=== PATIENT | female | born 2005 | race Caucasian/White ===

== ENCOUNTER 2025-05-27 13:32 | Emergency (ER) | payer BC, SELFPAY ==
--- NOTE | 2025-05-27 13:33 | ED_ITS ---
HPI - General Adult General Chief complaint: Nausea/Vomiting/Diarrhea Stated complaint: NAUSEA/VOMITING/STOMACH PAIN Time Seen by Provider: 05/27/25 14:25 Source: patient Mode of arrival: ambulatory Limitations: no limitations History of Present Illness HPI narrative: 20-year-old female that presents with Nausea, vomiting and feeling hot. Patient has been able to keep down fluids and medication but has not eaten anything today. Patient has similar symptoms previously and states this is just worse than it normally is. Patient states that she had an last year and symptoms have worsened since then. does have history of ovarian cysts but denies any vaginal bleeding. Related Data Allergies Allergy/AdvReac Type Severity Reaction Status Date / Time No Known Allergies Allergy Verified 05/27/25 13:56 Review of Systems Review of Systems: All systems reviewed & are unremarkable except as noted in HPI and below Constitutional: Constitutional: Denies body ache(s), Denies chills, Denies fatigue, Denies fever(s), Denies headache(s), Denies malaise and Denies weakness Eyes: Eyes: Denies blurry vision, Denies irritation and Denies loss of vision ENT: Denies otalgia, Denies headache(s), Denies nasal discharge, Denies sinus pain and Denies sore throat Cardiovascular: Cardiovascular: Denies chest pain, Denies irregular heart rhythm and Denies dyspnea Respiratory: Respiratory: Denies dyspnea Gastrointestinal: Gastrointestinal: Reports abdominal pain, Denies melena, Denies hematochezia, Denies diarrhea, Reports nausea and Reports vomiting Musculoskeletal: Musculoskeletal: Denies back pain, Denies myalgias and Denies arthralgias Integumentary/Breasts: Skin/Breast: Denies pruritus and Denies rash Neurologic: Denies headache(s), Denies loss of vision and Denies weakness Psychiatric: Psychiatric: Reports no additional psychiatric complaints Endocrine: Endocrine: Denies fatigue PMFSH Comments At time of signature, agree with nursing past medical, surgical, social and family history. There is no relevant family history pertinent to the presenting complaint. Exam Const: General: cooperative, healthy appearing, comfortable, no acute distress and well nourished Nutritional Appearance: well nourished Orientation/consciousness: patient oriented x3 Limitations: no limitations HENMT: Head: normal to inspection, normocephalic and atraumatic Ears: hearing grossly normal bilaterally and external ears normal Face/Nose/Sinus: Normal external nose present, normal facial exam and face symmetric Face and sinus: normal facial exam and face symmetric Mouth: Yes lip normal Eyes: General: appearance normal, both eyes and all related structures Alignment and Position: alignment normal and position normal Periorbital: periorbital findings normal Eyelids: eyelids normal Pupils: Equal, round and reactive pupils present EOM: EOMs intact bilaterally Neck: Neck: normal visual inspection, full ROM and supple Chest: Chest palpation & inspection: normal inspection of the chest Resp: Effort & Inspection: normal respiratory effort and able to speak in complete sentences Auscultation: clear to auscultation bilaterally Cardio: Rate: regular rate Rhythm: regular rhythm Heart sounds: S1 normal heart sound present and S2 normal heart sound present GI: Inspection: normal to inspection GI Palp: No abdominal tenderness, Yes Soft to palpation, No Tenderness to palpation present (GI) and No Guarding due to palpation present (GI) Skin: General skin exam: normal color and no rashes or lesions noted Neuro: General: patient oriented x3 and moves all extremities Cranial nerves: Yes Equal, round and reactive pupils present Speech: normal speech Gait exam (Neuro): Normal gait present Extrem: General: normal to inspection, full ROM and no edema Psych: Appearance: grossly normal and well kempt Mental Status: mental st atus grossly normal Speech and movement: Normal speech and movement present Affect: normal affect Attitude: cooperative Thought process: Normal thought process present Course Course Emergency Course: Patient is aware of diagnosis, understands and agrees to treatment plan. Anticipatory guidance given. Patient agrees to follow-up as directed and is aware of reasons to seek care at the emergency department. Portions of this record may have been created with voice recognition software Level of Care: Express Care Visit Vital Signs Vital signs: Vital Signs Temperature 36.3 C L 05/27/25 13:44 Pulse Rate 45 L 05/27/25 13:44 Respiratory Rate 18 05/27/25 13:44 Blood Pressure 119/69 05/27/25 13:44 Pulse Oximetry 99 05/27/25 13:44 Temperature 36.3 C L 05/27/25 13:44 Pulse Rate 54 L 05/27/25 14:28 Respiratory Rate 18 05/27/25 13:44 Blood Pressure 119/69 05/27/25 13:44 Pulse Oximetry 99 05/27/25 14:28 Oxygen Delivery Room Air 05/27/25 14:28 Reviewed Medical Decision Making MDM Narrative Medical decision making narrative: discussed transfer to emergency department for imaging and labs as it has been several years since she has had a PCP appointment. Patient declines at this time stating she will start with medication and see if helps. Patient susceptible to establishing care with PCP in a week. Pt well hydrated appearing, in no respiratory distress, hemodynamically stable. Recommend supportive care. The patient is stable at time of discharge the clinical impression was discussed and the patient was given the opportunity to ask questions, which were addressed as completely as possible given the information available at present. Anticipatory guidance and return to care pr ecautions were discussed and the importance of primary care follow-up was stressed and encouraged. The patient voiced understanding of the plan, indications to return, and the need for follow-up. Exam findings show no acute concerns or changes Patient is appropriate for outpatient treatment and follow-up. Vital Signs Vital Signs: Vital Signs Temperature 36.3 C L 05/27/25 13:44 Pulse Rate 45 L 05/27/25 13:44 Respiratory Rate 18 05/27/25 13:44 Blood Pressure 119/69 05/27/25 13:44 Pulse Oximetry 99 05/27/25 13:44 Temperature 36.3 C L 05/27/25 13:44 Pulse Rate 54 L 05/27/25 14:28 Respiratory Rate 18 05/27/25 13:44 Blood Pressure 119/69 05/27/25 13:44 Pulse Oximetry 99 05/27/25 14:28 Oxygen Delivery Room Air 05/27/25 14:28 Reviewed Discharge Plan Discharge Clinical Impression: Nausea and vomiting Qualifiers: Vomiting type: unspecified Qualified Code(s): R11.2 - Nausea with vomiting, unspecified Abdominal pain Qualifiers: Abdominal location: generalized Qualified Code(s): R10.84 - Generalized abdominal pain Patient Disposition: Home Condition: Stable Instructions: Acute Nausea and Vomiting (ED), Abdominal Pain (ED) Additional Instructions: Stay hydrated. Take small sips of fluid containing electrolytes frequently(Body [place], Gatorade, Powerade, liquid IV). Eat small meals that her very bland including bananas, applesauce, rice, toast, boiled or grilled chicken, soup. Do not eat anything fried, spicy or overly acidic. You should go to the hospital if you experience return of persistent nausea and vomiting that does not resolve and does not allow you to tolerate any food or fluids, persistent fevers for greater than 2-3 more days, increasing abdominal pain that persists despite medications, persistent diarrhea, dizziness, syncope (fainting), or for any other concerns. Patient Language: [place] Island[place] Prescriptions: New dicyclomine 20 mg tablet 20 mg PO QID 7 Days Qty: 28 0RF ondansetron 4 mg tablet,disintegrating 4 mg PO Q6-8H PRN (Reason: nausea and vomiting) Qty: 7 0RF Follow-up/Referrals: Wayne Alston MD [Physician, DELIVERY AND MAIL SORTER] - 3 Days Referral Note: establish MUNA spears Gina M., DO [Physician, Family Practice] - 3 Days Referral Note: Establish care Stand Alone Forms: Work/School Release IP Time of Disposition: 14:33
[2025-05-27 13:44] VITALS: BP 119/69; PULSE 45; RESP 18; TEMP 36.3; O2SAT 99
[2025-05-27 14:28] VITALS: PULSE 54; O2SAT 99
== END 2025-05-27 14:39 | disposition home or self-care (01) ==
PROVIDERS: Emergency Provider Nurse Practitioner Family
DX: R11.2 Nausea with vomiting, unspecified (principal); R10.84 Generalized abdominal pain
CPT/HCPCS: 99203; G0463

== ENCOUNTER 2025-07-04 14:47 | Emergency (ER) | payer BC, SELFPAY ==
[2025-07-04 15:29] VITALS: BP 113/57; PULSE 55; RESP 16; TEMP 36.4; O2SAT 100
--- NOTE | 2025-07-04 17:56 | ED.FEMALEGU ---
HPI - Female Genitourinary General Chief complaint: Urogenital-Female Stated complaint: Nausea Time Seen by Provider: 07/04/25 16:43 Source: patient and RN notes reviewed Mode of arrival: ambulatory Limitations: no limitations History of Present Illness HPI Narrative: 20-year-old female patient presents today requesting a test and work note. Reports she has had several episodes of vomiting in the morning the last few days and persistent nausea. LMP is May 17. Denies abdominal pain, vaginal bleeding or discharge. States she has not taken a home test. Does not currently have an OBGYN. Related Data Allergies Allergy/AdvReac Type Severity Reaction Status Date / Time No Known Allergies Allergy Verified 05/27/25 13:56 PMFSH Comments At time of signature, I have reviewed and agree with nursing past medical, surgical, social and family history unless otherwise noted. Please see nursing chart for further information. There is no relevant family history pertinent to the presenting complaint Exam Narrative: GENERAL: Well-appearing, well-nourished, and in no acute distress. HEAD: Normocephalic, atraumatic. EYES: EOMI. No redness or drainage. Conjunctivae normal. ENT: Mucous membranes pink and moist. NECK: Normal AROM. CHEST: No respiratory distress. EXTREMITIES: Normal range of motion. No edema. SKIN: Warm, dry, no rash. Capillary refill normal. Normal skin turgor. NEURO: No focal deficits. Alert and oriented x3. Gait steady. PSYCH: Normal affect. No signs of depression or anxiety. Course Course Level of Care: Express Care Visit Vital Signs Vital signs: Vital Signs Temperature 97.5 F L 07/04/25 15:29 Pulse Rate 55 L 07/04/25 15:29 Respiratory Rate 16 07/04/25 15:29 Blood Pressure 113/57 L 07/04/25 15:29 Pulse Oximetry 100 07/04/25 15:29 Temperature 97.5 F L 07/04/25 15:29 Pulse Rate 55 L 07/04/25 15:29 Respiratory Rate 16 07/04/25 15:29 Blood Pressure 113/57 L 07/04/25 15:29 Pulse Oximetry 100 07/04/25 15:29 Reviewed MDM - Female Genitourinary MDM Narrative Medical decision making narrative: 20-year-old female patient presents today requesting a test and work note. Reports she has had several episodes of vomiting in the morning the last few days and persistent nausea. LMP is May 17. Denies abdominal pain, vaginal bleeding or discharge. States she has not taken a home test. Does not currently have an OBGYN. Normal physical exam. Positive bedside test. Recommend patient initiate care with an OBGYN. She has been given contact information for OBGYN in the area. ED precautions given. Differential Diagnosis Differential diagnosis: Likely other () Lab Data Attestation: I reviewed the patient's lab results. Lab results narrative: Positive bedside test Critical Care Time Critical Care Time Critical Care Time: No Discharge Plan Discharge Clinical Impression: Positive urine test Patient Disposition: Home Condition: Stable Additional Instructions: You have a positive test today. Please make an appointment to initiate care with an OBGYN. Please discontinue use of any Aleve or ibuprofen. If you develop any abdominal pain, bleeding or discharge, please go to the ER immediately for further evaluation. Patient Language: Norwegian Prescriptions: No Action dicyclomine 20 mg tablet 20 mg PO QID 7 Days Qty: 28 0RF ondansetron 4 mg tablet,disintegrating 4 mg PO Q6-8H PRN (Reason: nausea and vomiting) Qty: 7 0RF Follow-up/Referrals: PHYSICIAN,[employer] [Primary Care Provider, Internal Medicine] Stand Alone Forms: Work/School Release IP Time of Disposition: 16:48
[2025-07-05 11:51] LABS: BEDSIDEPREGUCG Positive (Negative)
== END 2025-07-04 16:50 | disposition home or self-care (01) ==
PROVIDERS: Emergency Provider Nurse Practitioner
DX: Z32.01 Encounter for pregnancy test, result positive (principal)
CPT/HCPCS: 81025; 99212; G0463

== ENCOUNTER 2025-07-06 11:56 | Emergency (ER) | payer BC, SELFPAY ==
--- NOTE | ~2025-07-06 | US_ITS ---
EXAMINATION: US OB <=14 wk fetus w TV DATE: 07/06/2025 15:17 INDICATION: Vomiting during first trimester TECHNIQUE: Real-time pelvic ultrasound utilizing both a transvaginal and transabdominal probe was performed. The interpreting radiologist was not present for the study. COMPARISON: None. FINDINGS: The uterus measures 9.6 x 4.8 x 6.7 cm. There is an intrauterine gestational sac. A yolk sac and pole are identified. The crown rump length measures 7 mm, which correlates with an estimated gestational age of 6 weeks and 4 days. heart motion is identified measuring 126 beats per minute (bpm) by M-mode Doppler. 5 mm anechoic nabothian cysts the cervix. The right ovary measures 3.3 x 2.6 x 1.8 cm. The left ovary measures 3.2 x 1.6 x 2.0 cm. There is partial flow identified in both ovaries on color Doppler. free fluid in the pelvis. IMPRESSION: 1. Single living fetus with heart rate of 126 bpm. 2. Gestational age by ultrasound of 6 weeks 4 day(s) +/- 4 day(s) with ultrasound estimated date of delivery ([facility]) of 02/25/2026. Reviewed, dictated and finalized at location A. HER AIDE IMPRESSION: 1. Single living fetus with heart rate of 126 bpm. 2. Gestational age by ultrasound of 6 weeks 4 day(s) +/- 4 day(s) with ultraso und estimated date of delivery ([facility]) of 02/25/2026.
[2025-07-06 12:07] VITALS: BP 116/65; PULSE 67; RESP 20; TEMP 36.4; O2SAT 100
[2025-07-06 12:25] VITALS: BP 122/70; PULSE 70; RESP 18; O2SAT 98
[2025-07-06] MEDS: FAMOTIDINE 20 MG/2 ML VIAL IV PUSH (12:45)
[2025-07-06] MEDS: ONDANSETRON INJ 4 MG/2 ML VIAL IV PUSH (12:46)
[2025-07-06] MEDS: LACTATED RINGERS 1,000 ML 999 ML IV CONT (12:46)
[2025-07-06 13:18] LABS: Hematocrit 42.9 % (37.0-47.0); Hemoglobin 14.2 g/dL (12.0-15.0); Immature Granulocyte Percent A 0.4 % (0-0.5); Lymphocytes Absolute Auto 1.14 K/mm3 (0.9-3.2); Mean Corpuscular HGB Conc 33.1 g/dl (32-36); Mean Corpuscular Hemoglobin 27.1 pg (26-34); Mean Corpuscular Volume 81.9 fl (80-100); Nucleated Red Blood Cells Absolute Auto 0.000 K/mm3 (0.0-0.012); Nucleated Red Blood Cells Perc 0.0 % (0.0-0.2); Platelet Count Result 313 k/mm3 (150-375); Red Blood Count 5.24 M/mm3 (4.2-5.4); White Blood Count 11.0 K/mm3 (4.5-10.0)
[2025-07-06 13:27] LABS: Alanine Aminotransferase 13 U/L (6-35); Albumin Level 4.9 g/dL (3.5-5.1); Alkaline Phosphatase 67 U/L (38-126); Anion Gap 13 mmol/L (4-12); Aspartate Amino Transferase 19 U/L (14-36); Bilirubin,Total 0.6 mg/dL (0.2-1.3); Blood Urea Nitrogen 10 mg/dL (7-17); Calcium 9.7 mg/dL (8.4-10.2); Carbon Dioxide 20 mmol/L (22-30); Chloride 103 mmol/L (98-107); Estimated CRCL calculation 132 ml/min; Estimated Glomerular Filt Rate > 60; Glucose 91 mg/dL (65-110); Lipase 68 U/L (23-300); Potassium 4.1 mmol/L (3.4-5.0); Sodium 136 mmol/L (137-145); Total Protein 8.6 g/dL (6.3-8.2)
--- OUTSIDE RECORDS SUMMARY | 2025-07-06 13:35 | XMS_ITS | Clinical Summary ---
Author Organization [facility] [place] Address [address] [place] [address] Care Team Providers Care Product Tester Name Role Phone Kimmy Bang MD Unavailable [phone] Tammy Gramajo PhD Unavailable [phone] Avril Cole MD Primary Care Provider Allergies No known active allergies Medications albuterol (PROAIR HFA) 108 (90 Base) MCG/ACT Aerosol SolutionIndicati ons:Mild intermittent asthma without complication take 2 Puffs by inhalation every 4 hours as needed for Wheezing. 8.5 g 1 9 Active cetirizine (ZYRTEC) 10 MG TabletIndication s:Seasonal allergies Take 1 Tab by mouth daily. 90 Tab 3 0 Active Additional Information Patient not taking.Reported on 02/15/2020 ibuprofen (MOTRIN) 800 MG Tablet Take 800 mg by mouth every 6 hours as needed. 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 07/08/2018 Lipids abnormal 06/18/2017 Mild intermittent asthma without complication BMI (body mass index), pediatric, 95-99% for age 0703/11/2017 Immunizations Immunization Administration Dates Next Due DTAP VACCINE 06/17/2007, 4,2003,08/11,2003 H1N1 Flu, Unspecified Formulation 06/02/2009 Hepatitis A Vaccine, Pediatric/adolescent, 2 Dose Schedule 09/25/2012,06/17/2007 Hepatitis A, Pediatric, Unsp ecified Formulation 03/31/2008 Hepatitis B Vaccine, Pediatric/adolescent 2003,2003,2003 Hib Vaccine,unspecified Formulation 02/2004,2003,2003,06/04 Human Papillomavirus Vaccine (HPV), quadrivalent 04/14/2013,11/27/2012,09/25/2012 Inactivated Polio Vaccine 06/17/2007,09/2003,2003,06/04 Influenza Vaccine 09/02/2012 Influenza Vaccine greater than 3 yrs 07/13/2014, 06/13/2010 Influenza Vaccine, Quadrivalent, PF 05/09/2018,1 08/20/2014,01/05/2015 Influenza Vaccine,unspecifie d Formulation 07/16/2006 Influenza, Seasonal, Injecta ble, Undefined 07/15/2007,06/17/2007 MMR Vaccine 04/18/2004 MMRV 06/17/2007 Meningococcal MCV4O 03/01/2020,07/14/2014 Pneumococcal Vaccine Peds - 7 Valent 02/2004,2003,2003,06/04 TDAP Vaccine 03/17/2014 Varicella Vaccine Live 05/01/2011,04/18/2004 Family History Medical History Relation Name Comments ADD / ADHD Brother Bipolar Disorder Brother No Known Problems Father No Known Problems Maternal Grandfather Diabetes Maternal Grandmother Heart Attack Maternal Grandmother Hypertension Maternal Grandmother Stroke Maternal Grandmother No Known Problems Mother No Known Problems Paternal Grandfather No Known Problems Paternal Grandmother Relation Name Status Comments Brother Father Alive Maternal Grandfather Maternal Grandmother Alive Mother Alive Paternal Grandfather Alive Paternal Grandmother Alive Social History Tobacco Use Types Packs/Day Years Used Date Smoking Tobacco: Never Smokeless Tobacco: Never Tobacco Cessation:Counseling Given: Yes Alcohol Use Standard Drinks/Week Comments Not Asked 0 (1 standard drink = 0.6 oz pur e alcohol) PHQ-2 Answer Date Recorded Total Score - Questions 1-9 1 04/2021 Sexually Active Control Partners Comments Yes Condom Male depo shot Comments No Sex and Gender Information Value Date Recorded Sex Assigned at Not on file Legal Sex Female 3:26 PM CDT Gender Identity Not on file Sexual Orientation Not on file Last Filed Vital Signs Vital Sign Reading Time Taken Comments Blood Pressure 108/62 04/20/2021 8:52 AM CDT Pulse 92 04/20/2021 8:52 AM CDT Temperature 36.7 C (98 F) 04/20/2021 8:52 AM CDT Respiratory Rate 16 04/20/2021 8:52 AM CDT Oxygen Saturation 98% 04/20/2021 8:52 AM CDT Inhaled Oxygen Concentration - - Weight 104.8 kg (231 lb) 04/20/2021 8:52 AM CDT Height 162.6 cm (5' 4) 04/20/2021 8:52 AM CDT Body Mass Index 39.65 04/20/2021 8:52 AM CDT Plan of Treatment Health Maintenance Due Date Last Done Comments Hepatitis C Virus (HCV) Screening 2003 Meningococcal B Immunization (1 of 2 - Standard) 2019 Pneumococcal Immunization Combined (1 of 2 - PCV) 2022 04/18/2004, 2003, 2003, Additional history exists DTaP/Tdap/Td Immunization (7 - Td or Tdap) 03/17/2024 03/17/2014, 06/17/2007, 07/04/2004, Additional history exists Influenza Immunization (#1) 04/12/202504/13, 06/20/2015, 01/05/2015, Additional history exists SARS-COV-2 Immunization (1 - 2024- season) 2025 Respiratory Syncytial Virus (RSV) Immunization (Adult) (1 - 1-dose 75+ series) 2078 Hepatitis B Immunization Completed 004, 2003, 2003 Measles Mumps Rubella (MMR) Immunization Discontinued 06/17/2007, 04/18/2004 Polio (IPV) Immunization Discontinued 007, 2003, 2003, Additional history exists Varicella Immunization Completed 1, 06/17/2007, 04/18/2004 Hepatitis A Immunization Discontinued 013, 03/31/2008, 06/17/2007 Human Papillomavirus (HPV) Immunization Completed 04/14/2013, 11/27/2012, 09/25/2012 Meningococcal Immunization (ACWY) Completed 03/01/2020, 07/14/2014 Rotavirus Immunization Aged Out No lo nger eligible based on patient's age to complete this topic Insurance MEDICAID [facility] MEDICAID [place] Care Teams Product Tester Relationship Specialty Start Date End Date Avril Cole MD [address] [place] [address] PCP - General Family Medicine 02/15/20 Kimmy Bang MD [address] [place] [address] Heel Washer Stringing Machine Operator Pediatrics 02/10/19 Tammy Gramajo, PhD [address] [place] [address] Psychology 02/10/19
--- OUTSIDE RECORDS SUMMARY | 2025-07-06 13:35 | XMS_ITS | Clinical Summary ---
Author Organization [facility] Address [address] [address] Phone Care Team Providers Care Mining Technician Name Role Phone Unavailable Primary Care Provider Unavailabl e Allergies No known active allergies Medications No known medications Social History Tobacco Use Types Packs/Day Years Used Date Smoking Tobacco: Never Smokeless Tobacco: Never Adolescent Education Answer Date Record ed Getting School Help Needed Not on file 03/15 Comments Unknown Sex and Gender Information Value Date Recorded Sex Assigned at Not on file Legal Sex Female 5:07 PM AIR TRAFFIC SYSTEMS TECHNICIAN Gender Identity Not on file Sexual Orientation Not on file Last Filed Vital Signs Vital Sign Reading Time Taken Comments Blood Pressure 119/68 09/06/2021 3:00 PM AIR TRAFFIC SYSTEMS TECHNICIAN Pulse 84 09/06/2021 3:00 PM AIR TRAFFIC SYSTEMS TECHNICIAN Temperature 36.7 C (98 F) 09/06/2021 3:00 PM AIR TRAFFIC SYSTEMS TECHNICIAN Respiratory Rate 18 09/06/2021 3:00 PM AIR TRAFFIC SYSTEMS TECHNICIAN Oxygen Saturation 98% 09/06/2021 3:00 PM AIR TRAFFIC SYSTEMS TECHNICIAN Inhaled Oxygen Concentration - - Weight 104.8 kg (231 lb) 09/06/2021 3:00 PM AIR TRAFFIC SYSTEMS TECHNICIAN Height 160 cm (5' 3) 09/06/2021 3:00 PM AIR TRAFFIC SYSTEMS TECHNICIAN Body Mass Index 40.92 09/06/2021 3:00 PM AIR TRAFFIC SYSTEMS TECHNICIAN Plan of Treatment Health Maintenance Due Date Last Done Comments CHLAMYDIA SCREENING (ANNUAL) 11-24 YEARS 2014 DTAP/TDAP/TD VACCINES (7 - T d or Tdap) 03/17/2024 03/17/2014, 06/17/2007, 07/04/2004, Additional history exists CERVICAL CANCER SCREENING 2024 HPV/Cotest (21-29) 2024 PAP SMEAR 2024 INFLUENZA VACCINE (#1) 2025 8, 06/20/2015, 01/05/2015, Additional history exists HEPATITIS B VACCINES Completed 2003, 2003, 2003 HPV VACCINES Completed 04/14/2013, 11/10, 09/25/2012 Insurance GENERIC MEDICAID MANAGED
--- NOTE | 2025-07-06 13:55 | ED.NAVMDI ---
HPI - Nausea/Vomiting/Diarrhea General Chief complaint: Nausea/Vomiting/Diarrhea Stated complaint: N/V NEWLY Time Seen by Provider: 07/06/25 12:26 Source: patient Mode of arrival: ambulatory Limitations: no limitations History of Present Illness HPI Narrative: This is a 20-year-old female that presents to the emergency department for nausea and vomiting. Ongoing since earlier today. Reports she is currently . She does not have an OB yet. Presents for feelings of dehydration. Related Data Allergies Allergy/AdvReac Type Severity Reaction Status Date / Time No Known Allergies Allergy Verified 07/06/25 11:57 Review of Systems Review of Systems: All systems reviewed & are unremarkable except as noted in HPI and below Exam Narrative: GENERAL: Well-appearing, well-nourished, and in no acute distress. HEAD: Normocephalic, atraumatic. EYES: EOMI. ENT: Nares clear, no rhinorrhea or epistaxis. Mucous membranes moist. Oropharynx without tonsillar hypertrophy exudate or other lesions. CHEST: Clear to auscultation. No respiratory distress. No wheezes rales or rhonchi HEART: Regular rate and rhythm. No murmur heard. Normal peripheral pulses. ABDOMEN: Soft, nontender, nondistended, normal active bowel sounds. EXTREMITIES: Normal range of motion. No edema. SKIN: Warm, dry, no rash. NEURO: No focal deficits. Alert and oriented x3. PSYCH: Normal mood and affect Course Course Emergency Course: Patient updated on her workup. Resting comfortably. Tolerating p.o. challenge Vital Signs Vital signs: Vital Signs Temperature 97.6 F 07/06/25 12:07 Pulse Rate 67 07/06/25 12:07 Respiratory Rate 20 07/06/25 12:07 Blood Pressure 116/65 07/06/25 12:07 Pulse Oximetry 100 07/06/25 12:07 Oxygen Delivery Room Air 07/06/25 12:07 Temperature 97.6 F 07/06/25 12:07 Pulse Rate 64 07/06/25 17:21 Respiratory Rate 19 07/06/25 17:21 Blood Pressure 110/54 L 07/06/25 17:21 Pulse Oximetry 99 07/06/25 17:21 Oxygen Delivery Room Air 07/06/25 12:25 MDM - Nausea/Vomiting/Diarrhea MDM Narrative Medical decision making narrative: Patient presents to the emergency department for nausea and vomiting in first-trimester . She is afebrile and nontoxic appearing. Her vitals are stable. CBC with mild leukocytosis. Metabolic panel with evidence of dehydration. Patient hydrated with IV fluids in the ER, given antiemetic with relief. Urine without evidence of infection. Quantitative beta HCG 22,803. OB ultrasound showing single living fetus with heart rate of 126. Patient updated on her workup. Resting comfortably. Tolerating p.o. challenge. She is to follow up with her Ob Differential Diagnosis Differential diagnosis: Likely food poisoning, gastroenteritis, dehydration and other (Nausea vomiting in ) Lab Data Attestation: I reviewed the patient's lab results. 07/06/25 12:59 07/06/25 12:59 Labs: Lab Results 07/06/25 07/06/25 Range/Units 12:59 15:45 WBC 11.0 H (4.5-10.0) K/mm3 RBC 5.24 (4.2-5.4) M/mm3 Hgb 14.2 (12.0-15.0) g/dL Hct 42.9 (37.0-47.0) % MCV 81.9 (80-100) fl MCH 27.1 (26-34) pg MCHC 33.1 (32-36) g/dl RDW 14.3 (11.5-14.5) % Plt Count 313 (150-375) k/mm3 MPV 9.1 (7.4-10.4) fl Immature Gran % (Auto) 0.4 (0-0.5) % Neut % (Auto) 81.8 H (45.5-73.1) % Lymph % (Auto) 10.4 L (18.3-44.2) % [place] % (Auto) 6.4 (2.6-8.5) % Eos % (Auto) 0.5 (0-4.4) % Baso % (Auto) 0.5 (0.2-1.2) % Lymph # (Auto) 1.14 (0.9-3.2) K/mm3 [place] # (Auto) 0.7 H (0.1-0.6) K/mm3 Eos # (Auto) 0.1 (0-0.3) K/mm3 Baso # (Auto) 0.1 (0.0-0.1) K/mm3 Abs Immat Gran (auto) 0.04 H (0.00-0.031) K/mm3 Absolute Neuts (auto) 9.0 H (1.3-6.7) K/mm3 Absolute Nucleated RBC 0.000 (0.0-0.012) K/mm3 Nucleated RBC % 0.0 (0.0-0.2) % Sodium 136 L (137-145) mmol/L Potassium 4.1 (3.4-5.0) mmol/L Chloride 103 (98-107) mmol/L Carbon Dioxide 20 L (22-30) mmol/L Anion Gap 13 H (4-12) mmol/L BUN 10 (7-17) mg/dL Creatinine 0.65 L (0.7-1.0) mg/dL Estim Creat Clear Calc 132 ml/min Estimated GFR > 60 (59 - ) Glucose 91 (65-110) mg/dL Calcium 9.7 (8.4-10.2) mg/dL Total Bilirubin 0.6 (0.2-1.3) mg/dL AST 19 (14-36) U/L ALT 13 (6-35) U/L Alkaline Phosphatase 67 (38-126) U/L Total Protein 8.6 H (6.3-8.2) g/dL Albumin 4.9 (3.5-5.1) g/dL Lipase 68 (23-300) U/L Beta HCG, Quant 19749.00 mIU/ML Urine Color Yellow (Yellow) Urine Appearance Clear (Clear) Urine pH 7.5 (5.0-9.0) Ur Specific [place] 1.010 (1.001-1.035) Urine Protein Negative (Negative) mg/dL Urine Glucose (UA) Negative (Negative) mg/dL Urine Ketones Trace H (Negative) mg/dL Ur Blood (Man) Negative (Negative) Urine Nitrate Negative (Negative) Urine Bilirubin Negative (Negative) Urine Urobilinogen 0.2 (<2.0) mg/dL Leukocyte Esterase Rfl Trace H (Negative) MARCOS/UL Urine RBC 0-2 (0-2) /hpf Urine WBC 0-5 (0-3) /hpf Ur Squamous Epith Cells Occasional (Few) /hpf Urine Bacteria None seen /hpf Urine Casts 0-2 Imaging Data Radiologist's impression: ITS Impressions Obstetrics Ultrasound 07/06/25 15:19 IMPRESSION: 1. Single living fetus with heart rate of 126 bpm. 2. Gestational age by ultrasound of 6 weeks 4 day(s) +/- 4 day(s) with ultrasound estimated date of delivery ([facility]) of 02/25/2026. Critical Care Time Critical Care Time Critical Care Time: No Discharge Plan Discharge Clinical Impression: Nausea and vomiting during Patient Disposition: Home Condition: Stable Instructions: Nausea and Vomiting in (ED) Additional Instructions: Return to the ER if you experience fever, chest pain, shortness of breath, abdominal pain with nausea and vomiting, you are unable to keep down liquids or solids, pelvic cramping, vaginal bleeding, or any other symptoms that are concerning to you Take a Vitamin B6 and Unisom (25mg tab) nightly. You can get these medications over the counter. This will help prevent nausea. Reglan as needed for nausea. Small, frequent meals. [place] diet. Remain well hydrated Follow up with OB Patient Language: Kyr[place]z Prescriptions: New metoclopramide HCl 5 mg tablet 5 mg PO Q6H PRN (Reason: nausea and vomiting) Qty: 14 0RF No Action dicyclomine 20 mg tablet 20 mg PO QID 7 Days Qty: 28 0RF ondansetron 4 mg tablet,disintegrating 4 mg PO Q6-8H PRN (Reason: nausea and vomiting) Qty: 7 0RF Follow-up/Referrals: PHYSICIAN,CUSHION GUM APPLICATOR [Primary Care Provider, Internal Medicine] Theodore Reynolds MD [Physician, PLANT MAINTENANCE TECHNICIAN] Stand Alone Forms: Work/School Release IP
[2025-07-06 14:15] VITALS: BP 107/58; PULSE 59; RESP 16; O2SAT 100
[2025-07-06 15:55] LABS: Add Urine Microscopic? YES; Appearance Urine Clear (Clear); Glucose Urine UA Negative (Negative); Leukocyte Esterase Ur Trace LEU/UL (Negative); Nitrate Urine Negative (Negative); Non Pathogenic Casts 0-2; Specific Grav Ur 1.010 (1.001-1.035)
[2025-07-06 17:21] VITALS: BP 110/54; PULSE 64; RESP 19; O2SAT 99
== END 2025-07-06 17:23 | disposition home or self-care (01) ==
PROVIDERS: Emergency Provider Physician Assistant
DX: O21.0 Mild hyperemesis gravidarum (principal); Z3A.01 Less than 8 weeks gestation of pregnancy
CPT/HCPCS: 36415; 76801; 76817; 80053; 81001; 83690; 84702; 85025; 96361; 96374; 96375; 99284; J2405; J7120